=== PATIENT | male | born 1955 ===

== ENCOUNTER 2018-11-02 12:51 | Emergency (ER) | payer OTHER ==
[~2018-11-02] VITALS: Ht 170.2 cm; Wt 95.3 kg
[2018-11-02] MEDS ORDERED: CLONAZEPAM0.5 MG (13:15)
[2018-11-02] MEDS ORDERED: ATIVAN1 M1 (13:15)
[2018-11-02] MEDS ORDERED: ENALAPRIL MALE2.5 MG (13:15)
== END 2018-11-02 17:36 | disposition home or self-care (01) ==
LOC: ER 12:51
DX: F06.4 Anxiety disorder due to known physiological condition (principal); R51 Headache; R07.89 Other chest pain